=== PATIENT | female | born 1985 | race Hispanic/Latino ===

== ENCOUNTER → 2021-10-18 | Outpatient (CLI) | payer OTHER ==
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
== END ==
LOC: M RAD 06:25
PROVIDERS: ATTEND Family Medicine
DX: M54.2 Cervicalgia (principal)